=== PATIENT | female | born 1955 | race African-American/Black ===

== ENCOUNTER 2020-03-23 04:24 | Emergency (ER) | payer OTHER ==
[~2020-03-23] VITALS: Ht 154.9 cm; Wt 81.0 kg
[2020-03-23 08:18] VITALS: BP 130/79
== END 2020-03-23 08:20 | disposition home or self-care (01) ==
LOC: ER 04:24
DX: R00.2 Palpitations (principal); F41.9 Anxiety disorder, unspecified; E11.9 Type 2 diabetes mellitus without complications
CPT/HCPCS: 93005; 99283